=== PATIENT | male | born 1960 | race Caucasian/White ===

== ENCOUNTER → 2025-01-23 08:23 | Outpatient (REF) | payer BC, SELFPAY | LOC: HWRCS 08:23 | PROVIDERS: ATTENDING PHYSICIAN Internal Medicine Cardiovascular Disease; FAMILY PHYSICIAN Family Medicine | DX: I25.10 Atherosclerotic heart disease of native coronary artery without angina pectoris (principal); I25.2 Old myocardial infarction | CPT/HCPCS: 93306 ==